=== PATIENT | male | born 1950 | race Two or more races ===

== ENCOUNTER 2020-07-09 14:08 | Emergency (ER) | payer OTHER ==
[~2020-07-09] VITALS: Ht 180.3 cm; Wt 86.2 kg
[2020-07-09] MEDS ORDERED: UROXATRAL10 MG (14:26)
[2020-07-09] MEDS ORDERED: METFORMIN HCL500 M3 (14:27)
== END 2020-07-09 20:56 | disposition home or self-care (01) ==
LOC: ER 14:08
DX: N13.5 Crossing vessel and stricture of ureter without hydronephrosis (principal); Z03.818 Encounter for observation for suspected exposure to other biological agents ruled out

== ENCOUNTER 2020-07-19 08:48 | Outpatient (CLI) | payer OTHER ==
[~2020-07-19 08:48] MED LIST: METFORMIN HCL500 M3; UROXATRAL10 MG
== END 2020-07-19 13:00 | disposition home or self-care (01) ==
LOC: NUCLEAR 08:48
PROVIDERS: ATTEND Urology
DX: R22.9 Localized swelling, mass and lump, unspecified (principal); Q62.11 Congenital occlusion of ureteropelvic junction
CPT/HCPCS: 78708; A9539; J1940

== ENCOUNTER 2021-12-15 01:05 | Emergency (ER) | payer OTHER ==
[~2021-12-15] VITALS: Ht 180.3 cm; Wt 88.5 kg
[2021-12-15] MEDS ORDERED: CIPRO500 MG PO (04:36)
== END 2021-12-15 04:55 | disposition home or self-care (01) ==
LOC: ER 01:05
DX: R33.9 Retention of urine, unspecified (principal); E11.9 Type 2 diabetes mellitus without complications